=== PATIENT | female | born 1970 | race Caucasian/White ===

== ENCOUNTER → 2018-03-19 | Outpatient (REF) | payer OTHER ==
[~2018-03-19] MED LIST: IBU800 PO; IBUP200C PO; LOR5/325 PO; MEC25 PO; VIT
== END ==
LOC: ZZSENDIN 12:00
PROVIDERS: ATTEND Orthopaedic Surgery
DX: L72.0 Epidermal cyst (principal)
CPT/HCPCS: 88305